=== PATIENT | female | born 1955 | race Hispanic/Latino ===

== ENCOUNTER 2021-12-22 16:12 | Emergency (ER) | payer MEDICARE ==
[~2021-12-22] VITALS: Ht 149.9 cm; Wt 72.1 kg
[2021-12-22 17:20] VITALS: BP 142/69
== END 2021-12-22 17:22 | disposition home or self-care (01) ==
LOC: EDH 16:12
DX: S00.03XA Contusion of scalp, initial encounter (principal); S09.90XA Unspecified injury of head, initial encounter; Z88.6 Allergy status to analgesic agent; Z88.5 Allergy status to narcotic agent; W07.XXXA Fall from chair, initial encounter; Y93.89 Activity, other specified; Y92.89 Other specified places as the place of occurrence of the external cause; Y99.8 Other external cause status
CPT/HCPCS: 70450; 72125